=== PATIENT | male | born 1940 | race Caucasian/White ===

== ENCOUNTER 2018-04-26 08:00 | Inpatient (IN) | payer OTHER ==
[~2018-04-26] VITALS: Ht 180.3 cm; Wt 73.5 kg
[~2018-04-26 08:00] MED LIST: GLIPIZIDE5 MG; HUMALOG KW100 UNIT/1; PLAVIX75 MG; TRICOR145 MG; ZOCOR40 MG; ZOCOR5 MG
[2018-04-26] MEDS ORDERED: [UNRECOGNIZED DRUG - OTHER] PO (09:59)
[2018-04-26] MEDS ORDERED: AMARYL PO (09:59)
[2018-04-26] MEDS ORDERED: TRICON CAPSULE1 EACH PO (10:00)
[2018-04-26] MEDS ORDERED: COZAAR100 MG PO (10:00)
[2018-04-26] MEDS ORDERED: TYLENOL PO (10:01)
[2018-04-26] MEDS ORDERED: ASPIRIN PO (10:01)
[2018-04-26] MEDS ORDERED: BENADRYL ALLERG25 MG PO (10:02)
[2018-04-26] MEDS ORDERED: LANTUS (10:26)
[2018-04-26] MEDS ORDERED: HUMLOG (10:26)
[2018-05-06] MEDS ORDERED: OXYC1TAB9 PO (09:27)
[2018-05-06] MEDS ORDERED: IMODIUM A-D2 M2 PO (09:27)
[2018-05-06] MEDS ORDERED: HYOSCYAMINE0.125 M1 SL (09:27)
[2018-05-06] MEDS ORDERED: INTESTINEX680 M1 PO (09:28)
== END 2018-05-06 15:09 | disposition home or self-care (01) | DRG 331 ==
LOC: SURH 05-02 07:00 → O/R 05-02 07:19 → SURG 05-02 07:19 → SURH 05-02 08:00 → SURG 05-02 16:34
PROVIDERS: ADMIT Surgery
PROC: 07TC4ZZ Resection of Pelvis Lymphatic, Percutaneous Endoscopic Approach (ICD-10-PCS; 2018-05-02)
PROC: 0D1B4Z4 Bypass Ileum to Cutaneous, Percutaneous Endoscopic Approach (ICD-10-PCS; 2018-05-02)
PROC: 0DJD8ZZ Inspection of Lower Intestinal Tract, Via Natural or Artificial Opening Endoscopic (ICD-10-PCS; 2018-05-02)
PROC: 0DTN4ZZ Resection of Sigmoid Colon, Percutaneous Endoscopic Approach (ICD-10-PCS; principal; 2018-05-02 07:00)
DX: C18.7 Malignant neoplasm of sigmoid colon (principal); I10 Essential (primary) hypertension; E10.9 Type 1 diabetes mellitus without complications; Z86.73 Personal history of transient ischemic attack (TIA), and cerebral infarction without residual deficits

== ENCOUNTER 2018-05-19 17:28 | Inpatient (IN) | payer OTHER ==
[~2018-05-19] VITALS: Ht 180.3 cm; Wt 68.5 kg
[~2018-05-19 17:28] MED LIST changes: +AMARYL PO; +ASPIRIN PO; +BENADRYL ALLERG25 MG PO; +COZAAR100 MG PO; +HUMLOG; +HYOSCYAMINE0.125 M1 SL; +IMODIUM A-D2 M2 PO; +INTESTINEX680 M1 PO; +LANTUS; +OXYC1TAB9 PO; +TRICON CAPSULE1 EACH PO; +TYLENOL PO; +[UNRECOGNIZED DRUG - OTHER] PO
--- NOTE | 2018-05-19 17:34 | NUR ---
SE RECIBE PTE ALERTA Y ORIENTADO X 3 ESFERAS EN AMBULANCIA EN COMPANIA DE PARAMEDICOS Y CUIDADORA.PTE REFIERE TOS DESDE QUE LE OPERARON POR OSTOMIA EN FEBRERO.REFIERE TOS EMPEORA SHE NO TENER NINGUN OTRO SINTOMA.
--- NOTE | 2018-05-19 17:58 | NUR ---
SE ORIENTA PTE SOBRE TRATAMIENTO. SE MAUDE MUESTRAS DE DAMEON Y SE CANALIZA PERIFERALMENTE POR FERNANDEZ RAMESH QUIEN ADMINISTRA MEDICAMENTOS ORDENADOS. SE COLOCA CANULA NASAL Y OXIMETRO DE PULSO. SE NOTFICA A PERSONAL DE RX PARA ESTUDIO PENDIENTE. PTE PENDIENTE A RE-EVALUCAION POR DR. LEDEZMA.
--- NOTE | 2018-05-20 05:36 | NUR ---
SE REALIZA BMP Y SE ENVIA ALBORATORIO
--- NOTE | 2018-05-20 07:46 | NUR ---
SE ORIENTA A PT Y SE OBSERVA ILEOSOMIA COLOR LEE, SHARRON DE CIANOSIS. SE VACIAN 350ML.
--- NOTE | 2018-05-20 08:18 | NUR ---
SE RECIBE DE TURNO ANTERIOR. PACIENTE MASCULINO. ALERTA Y ORIENTADO. BUEN PATRON RESPIRATORIO. PIEL TIBIA AL TACTO. CANALIZACION PATENTE, SHARRON DE EDEMA Y/O ENROJECIMIENTO RECIBIENDO 0.9%NSS @166 ML/HR.PACIENTE EN ESPERA DE CONSULTA CON DR MESA.
== END 2018-05-29 09:44 | DRG 683 ==
LOC: ER 17:28 → MEDJ 05-20 18:27 → SEC-K 05-20 18:27 → MEDJ 05-20 18:45
PROVIDERS: ADMIT Internal Medicine Cardiovascular Disease
PROC: 3E0F7GC Introduction of Other Therapeutic Substance into Respiratory Tract, Via Natural or Artificial Opening (ICD-10-PCS; principal; 2018-05-20)
DX: I12.9 Hypertensive chronic kidney disease with stage 1 through stage 4 chronic kidney disease, or unspecified chronic kidney disease (principal); N17.8 Other acute kidney failure; N39.0 Urinary tract infection, site not specified; I69.354 Hemiplegia and hemiparesis following cerebral infarction affecting left non-dominant side; C18.7 Malignant neoplasm of sigmoid colon; E86.0 Dehydration; I69.398 Other sequelae of cerebral infarction; E13.9 Other specified diabetes mellitus without complications; B96.29 Other Escherichia coli [E. coli] as the cause of diseases classified elsewhere; N18.9 Chronic kidney disease, unspecified; J22 Unspecified acute lower respiratory infection

== ENCOUNTER 2018-06-20 16:29 | Emergency (ER) | payer OTHER ==
[~2018-06-20] VITALS: Ht 180.3 cm; Wt 74.8 kg
[2018-06-20] MEDS ORDERED: GLUCOPHAGE XR500 MG (17:11)
[2018-06-20] MEDS ORDERED: PROTONIX40 MG (17:12)
[2018-06-20] MEDS ORDERED: PEPCID40 MG (17:13)
== END 2018-06-20 20:24 | disposition home or self-care (01) ==
LOC: ER 16:29
DX: K52.89 Other specified noninfective gastroenteritis and colitis (principal)

== ENCOUNTER 2018-08-15 13:21 | Emergency (ER) | payer OTHER ==
[~2018-08-15] VITALS: Ht 180.3 cm; Wt 73.0 kg
[~2018-08-15 13:21] MED LIST changes: +GLUCOPHAGE XR500 MG; +PEPCID40 MG; +PROTONIX40 MG
[2018-08-15] MEDS ORDERED: AMARYL (13:50)
[2018-08-15] MEDS ORDERED: AMBIEN5 MG (13:51)
[2018-08-15] MEDS ORDERED: ZOCOR20 MG (13:51)
[2018-08-15] MEDS ORDERED: AVANDIA4 MG (13:52)
== END 2018-08-15 20:47 | disposition home or self-care (01) ==
LOC: ER 13:21
DX: K94.03 Colostomy malfunction (principal); R10.31 Right lower quadrant pain

== ENCOUNTER 2019-01-10 10:48 | Emergency (ER) | payer OTHER ==
[~2019-01-10] VITALS: Ht 180.3 cm; Wt 57.6 kg
[~2019-01-10 10:48] MED LIST changes: +AMARYL; +AMBIEN5 MG; +AVANDIA4 MG; +ZOCOR20 MG
[2019-01-10] MEDS ORDERED: HUMALOG100 UNIT/1 (11:01)
[2019-01-10] MEDS ORDERED: LANTUS SOL100 UNIT/1 (11:01)
[2019-01-10] MEDS ORDERED: PROTONIX40 M1 (11:02)
[2019-01-10] MEDS ORDERED: IMODIUM A-D2 M2 (11:02)
[2019-01-10] MEDS ORDERED: PEPCID AC20 MG (11:02)
== END 2019-01-10 18:24 | disposition home or self-care (01) ==
LOC: ER 10:48
DX: E86.0 Dehydration (principal); E11.65 Type 2 diabetes mellitus with hyperglycemia

== ENCOUNTER 2019-01-15 12:55 | Inpatient (IN) | payer OTHER ==
[~2019-01-15] VITALS: Ht 180.3 cm; Wt 57.0 kg
[~2019-01-15 12:55] MED LIST changes: +HUMALOG100 UNIT/1; +IMODIUM A-D2 M2; +LANTUS SOL100 UNIT/1; +PEPCID AC20 MG; +PROTONIX40 M1
== END 2019-01-24 15:20 | disposition home or self-care (01) | DRG 638 ==
LOC: ER 12:55 → ICU-2 18:49 → ICU 01-16 18:43 → MEDJ 01-17 14:18 → SURH 01-18 13:04
PROVIDERS: ADMIT Internal Medicine Cardiovascular Disease
PROC: 8E0ZXY6 Isolation (ICD-10-PCS; principal; 2019-01-15)
DX: E11.65 Type 2 diabetes mellitus with hyperglycemia (principal); N17.8 Other acute kidney failure; K94.03 Colostomy malfunction; N30.00 Acute cystitis without hematuria; C18.7 Malignant neoplasm of sigmoid colon; I69.354 Hemiplegia and hemiparesis following cerebral infarction affecting left non-dominant side; N39.0 Urinary tract infection, site not specified; I69.398 Other sequelae of cerebral infarction; J22 Unspecified acute lower respiratory infection; E86.0 Dehydration; I95.89 Other hypotension; D63.8 Anemia in other chronic diseases classified elsewhere; L89.152 Pressure ulcer of sacral region, stage 2; I13.10 Hypertensive heart and chronic kidney disease without heart failure, with stage 1 through stage 4 chronic kidney disease, or unspecified chronic kidney disease; N18.9 Chronic kidney disease, unspecified; D64.89 Other specified anemias; K52.89 Other specified noninfective gastroenteritis and colitis; B96.1 Klebsiella pneumoniae [K. pneumoniae] as the cause of diseases classified elsewhere

== ENCOUNTER 2019-02-12 15:27 | Inpatient (IN) | payer OTHER ==
[~2019-02-12] VITALS: Ht 180.3 cm; Wt 54.4 kg
[2019-02-17] MEDS ORDERED: GLIMEPIRIDE4 MG PO (11:30)
[2019-02-17] MEDS ORDERED: AVANDIA4 MG PO (11:31)
[2019-02-17] MEDS ORDERED: METFORMIN HCL1000 MG PO (11:31)
[2019-02-17] MEDS ORDERED: ZOCOR40 MG PO (11:32)
[2019-02-17] MEDS ORDERED: BAYER ASPIRIN325 MG PO (11:32)
[2019-02-17] MEDS ORDERED: COZAAR100 MG PO (11:33)
[2019-02-17] MEDS ORDERED: TRICOR48 MG PO (11:33)
[2019-02-17] MEDS ORDERED: AMBIEN10 MG PO (11:35)
[2019-02-23] MEDS ORDERED: HYOSCYAMINE0.125 M1 SL (10:35)
[2019-02-23] MEDS ORDERED: OXYC1TAB9 PO (10:35)
== END 2019-02-23 13:38 | disposition home or self-care (01) | DRG 330 ==
LOC: O/R 02-20 06:25 → SURH 02-20 06:25 → SURG 02-20 09:45 → SURH 02-20 14:04
PROVIDERS: ADMIT Surgery
PROC: 0DQB4ZZ Repair Ileum, Percutaneous Endoscopic Approach (ICD-10-PCS; principal; 2019-02-20 10:45)
DX: Z43.2 Encounter for attention to ileostomy (principal); C20 Malignant neoplasm of rectum; I69.354 Hemiplegia and hemiparesis following cerebral infarction affecting left non-dominant side; I10 Essential (primary) hypertension; E11.65 Type 2 diabetes mellitus with hyperglycemia; Z79.4 Long term (current) use of insulin; D63.8 Anemia in other chronic diseases classified elsewhere

== ENCOUNTER 2020-04-20 06:00 | Day surgery (SDC) | payer OTHER ==
[~2020-04-20 06:00] MED LIST changes: +AMBIEN10 MG PO; +AVANDIA4 MG PO; +BAYER ASPIRIN325 MG PO; +GLIMEPIRIDE4 MG PO; +METFORMIN HCL1000 MG PO; +TRICOR48 MG PO; +ZOCOR40 MG PO
== END 2020-04-20 10:15 | disposition home or self-care (01) ==
LOC: AMB-ENDOS 06:00
PROVIDERS: ATTEND Surgery
DX: D12.2 Benign neoplasm of ascending colon (principal); D12.3 Benign neoplasm of transverse colon; Z20.822 Contact with and (suspected) exposure to COVID-19

== ENCOUNTER → 2022-07-20 | Emergency (ER) | payer OTHER ==
[~2022-07-20] VITALS: Ht 167.6 cm; Wt 59.0 kg
== END | disposition home or self-care (01) ==
LOC: ER 10:36
DX: L02.414 Cutaneous abscess of left upper limb (principal); I10 Essential (primary) hypertension; E03.9 Hypothyroidism, unspecified

== ENCOUNTER 2022-07-28 16:27 | Emergency (ER) | payer OTHER ==
[~2022-07-28] VITALS: Ht 170.2 cm; Wt 52.2 kg
[2022-07-28] MEDS ORDERED: LEVOFLOXACIN750 MG PO (22:42)
== END 2022-07-29 01:36 | disposition home or self-care (01) ==
LOC: ER 16:27
DX: E86.0 Dehydration (principal); I69.351 Hemiplegia and hemiparesis following cerebral infarction affecting right dominant side; I69.398 Other sequelae of cerebral infarction; I10 Essential (primary) hypertension; Z85.038 Personal history of other malignant neoplasm of large intestine; Z74.01 Bed confinement status; Z93.3 Colostomy status; E11.65 Type 2 diabetes mellitus with hyperglycemia; Z79.84 Long term (current) use of oral hypoglycemic drugs; Z20.822 Contact with and (suspected) exposure to COVID-19